=== PATIENT | female | born 1985 ===

== ENCOUNTER 2017-02-23 09:21 | Emergency (ER) | payer OTHER ==
[2017-02-23 09:47] VITALS: RESP 18
[2017-02-23] MEDS ORDERED: Sodium Chloride 0.9% 1,000 ML IV STA (10:09)
[2017-02-23 10:46] LABS: BASO % 0.5 % (0.0-2.0); EOS # 0.1 K/uL (0.0-0.7); EOS % 1.6 % (0.0-4.0); HEMATOCRIT 38.8 % (34.0-47.0); LYMPH # 2.2 K/uL (1.0-4.3); MEAN CELL VOLUME 85.1 fL (81.0-99.0); MEAN CORPUSCULAR HEMOGLOBIN 28.1 pg (27.0-31.0); MEAN PLATELET VOLUME 7.6 fL (7.2-11.7); MONO # 0.5 K/uL (0.0-0.8); MONO % 6.2 % (0.0-10.0); RED CELL DISTRIBUTION WIDTH 13.4 % (11.5-14.5); WHITE BLOOD COUNT 7.6 K/uL (4.8-10.8)
[2017-02-23 10:49] LABS: RBC URINE < 1 /hpf (0-3); URINE BACTERIA RARE (<OCC); URINE BILIRUBIN NEGATIVE (NEGATIVE); URINE BLOOD 2+ (NEGATIVE); URINE COLOR Straw (YELLOW); URINE GLUCOSE (UA) NORMAL (Normal); URINE KETONE NEGATIVE (NEGATIVE); URINE LEUKOCYTE ESTERASE NEG Leu/uL (Negative); URINE PROTEIN NEGATIVE (NEGATIVE); URINE UROBILINOGEN NORMAL mg/dL (0.2-1.0); WBC URINE 3 /hpf (0-5)
--- NOTE | 2017-02-23 11:20 | C.PDOC ---
History Of Present Illness 31 year old female, currently 5 weeks , presents to the ED with complaints of vaginal bleeding and lower abdominal cramps starting this morning. Denies injury, fever, vomiting, or any other complaints at this time. Chief Complaint (Nursing): Female Genitourinary History Per: Patient History/Exam Limitations: no limitations Onset/Duration Of Symptoms: Hrs Current Symptoms Are (Timing): Still Present Severity: Mild Quality Of Discomfort: Cramping Associated Symptoms: denies: Fever, Chills, Nausea, Vomiting, Urinary Symptoms Abnormal Vaginal Bleeding: Yes Past Medical History Reviewed: Historical Data, Nursing Documentation, Vital Signs Vital Signs: Last Vital Signs Temp 99.4 F 02/23/17 13:59 Pulse 99 H 02/23/17 13:59 Resp 18 02/23/17 13:59 BP 102/66 02/23/17 13:59 Pulse Ox 100 02/23/17 13:59 - Medical History PMH: No Chronic Diseases Family History: States: Unknown Family Hx - Social History Hx Alcohol Use: No Hx Substance Use: No Review Of Systems Except As Marked, All Systems Reviewed And Found Negative. Constitutional: Negative for: Fever, Chills Gastrointestinal: Positive for: Abdominal Pain (+Lower abdominal cramping). Negative for: Vomiting, Diarrhea Genitourinary: Positive for: Vaginal Discharge Musculoskeletal: Negative for: Back Pain Physical Exam - Physical Exam Appears: Non-toxic, No Acute Distress Skin: Normal Color, Warm, Dry Head: Atraumatic, Normacephalic Eye(s): bilateral: Normal Inspection Oral Mucosa: Moist Chest: Symmetrical, No Deformity Cardiovascular: Rhythm Regular, No Murmur Respiratory: Normal Breath Sounds, No Accessory Muscle Use, No Rales, No Rhonchi , No Wheezing Gastrointestinal/Abdominal: Soft, Tenderness (+Suprapubic tenderness), No Distention, No Guarding, No Rebound Extremity: Normal ROM Neurological/Psych: Oriented x3, Normal Speech, Normal Cognition ED Course And Treatment - Laboratory Results Result Diagrams: 02/23/17 10:24 02/23/17 10:24 O2 Sat by Pulse Oximetry: 98 (Room air) Pulse Ox Interpretation: Normal - CT Scan/US 1st Trimester US Other Rad Studies (CT/US): Read By Radiologist, Radiology Report Reviewed CT/US Interpretation: Accession No. : [id number]. Patient Name / ID : [id number] RAE / [id number]. Exam Date : 02/23/2017 11:25:51 ( Approved ). Study Comment : Sex / Age : F / 31Y. Creator : Karen Cano MD. Dictator : Karen Cano MD. Conditioning Room Worker : Grain Commodity Manager : Karen Cano MD. Approver2 : Report Date : 02/23/2017 13:16:29. My Comment : . PROCEDURE: OB Pelvic Ultrasound. HISTORY: , bleeding. COMPARISON: None available. FINDINGS: UTERUS: Gestational sac: Single intrauterine gestation. Heart rate: 132 bpm. age (Ultrasound estimated): 6 weeks and 4 days. Divina-gestational hemorrhage: None. Date of delivery (Ultrasound estimated) : . Uterus measures 12.7 x 5.5 x 7.7 cm. Normal in size and appearance. CERVIX: Long and closed. No cervical abnormality seen. RIGHT OVARY: Measures 4.9 x 3.6 x 4.1 cm. No mass lesion. Normal flow. LEFT OVARY: Measures 4.3 x 4.0 x 4.0 cm. No solid mass. Normal flow. There is a 3.3 x 2.6 x 3.1 cm corpus luteum cyst. FREE FLUID: There is a small amount of free fluid in the cul de sac. OTHER FINDINGS: None. IMPRESSION: Single live intrauterine gestation with mean gestational age of 6 weeks and 4 days. The ultrasound dates correlate with the clinical dates. Estimated date of delivery by ultrasound is 10/17/2017. Progress Note: 1st Trimester US, Blood work, and Urinalysis ordered and reviewed. Patient treated with IV fluids. Disposition - Disposition Disposition: HOME/ ROUTINE Disposition Time: 14:19 Condition: STABLE Additional Instructions: Follow up with OBGYN within 1-2 days. Return to ED if feel worse. Instructions: Threatened Miscarriage (ED) - Clinical Impression Clinical Impression: Threatened - PA / PROFESSOR OF ART / Resident Statement / has reviewed & agrees with the documentation as recorded. - Scribe Statement The provider has reviewed the documentation as recorded by the Scribe Ben Yanes. All medical record entries made by the Scribe were at my direction and personally dictated by me. I have reviewed the chart and agree that the record accurately reflects my personal performance of the history, physical exam, medical decision making, and the department course for this patient. I have also personally directed, reviewed, and agree with the discharge instructions and disposition.
[2017-02-23 11:49] LABS: ALB/GLOB RATIO 1.2 (1.0-2.1); ALKALINE PHOSPHATASE 58 U/L (38-126); ALT/SGPT 27 U/L (9-52); AST/SGOT 19 U/L (14-36); BILIRUBIN,TOTAL 0.3 mg/dL (0.2-1.3); BLOOD UREA NITROGEN 11 mg/dL (7-17); CALCIUM 9.2 mg/dl (8.6-10.4); CARBON DIOXIDE 23 mmol/L (22-30); CHLORIDE 97 mmol/L (98-107); GFR AFRICAN-AMERICAN > 60; GLUCOSE,RANDOM 83 mg/dL (65-105); POTASSIUM 4.2 mmol/L (3.6-5.2); SODIUM 134 mmol/L (132-148); TOTAL PROTEIN 7.2 g/dL (6.3-8.3)
--- NOTE | 2017-02-23 13:18 | US ---
PROCEDURE: OB Pelvic Ultrasound HISTORY: , bleeding COMPARISON: None available. FINDINGS: UTERUS: Gestational sac: Single intrauterine gestation. Heart rate: 132 bpm. age (Ultrasound estimated): 6 weeks and 4 days Divina-gestational hemorrhage: None. Date of delivery (Ultrasound estimated) : 10/17/2017 Uterus measures 12.7 x 5.5 x 7.7 cm. Normal in size and appearance. CERVIX: Long and closed. No cervical abnormality seen. RIGHT OVARY: Measures 4.9 x 3.6 x 4.1 cm. No mass lesion. Normal flow. LEFT OVARY: Measures 4.3 x 4.0 x 4.0 cm. No solid mass. Normal flow. There is a 3.3 x 2.6 x 3.1 cm corpus luteum cyst. FREE FLUID: There is a small amount of free fluid in the cul de sac. OTHER FINDINGS: None. IMPRESSION: Single live intrauterine gestation with mean gestational age of 6 weeks and 4 days. The ultrasound dates correlate with the clinical dates. Estimated date of delivery by ultrasound is 10/17/2017.
[2017-02-23 14:00] VITALS: BP 102/66; PULSE 99; TEMP 99.4
[2017-02-23 14:20] VITALS: O2SAT 98
== END 2017-02-23 14:17 | disposition home or self-care (01) ==
LOC: C.ER 09:21
DX: O20.0 Threatened abortion (principal); Z3A.01 Less than 8 weeks gestation of pregnancy
CPT/HCPCS: 76805; 76817; 80053; 81001; 84702; 85025; 86850; 86900; 96360; 99285; J7040